=== PATIENT | female | born 1960 | race Two or more races ===

== ENCOUNTER 2017-12-07 07:30 | Day surgery (SDC) | payer OTHER ==
[~2017-12-07] VITALS: Ht 160 cm; Wt 85.3 kg
[2017-12-07] VITALS (9 sets, daily range): BP systolic 105–120; BP diastolic 65–72
--- NOTE | 2017-12-07 07:05 | Anethesia Preoperative Eval ---
Anesthesia Pre-op PMH/ROS General Date of Evaluation: Dec 07, 2017 Time of Evaluation: 07:05 Anesthesiologist: pepe ASA Score: ASA 3 Mallampati Score Class I : Soft palate, uvula, fauces, pillars visible Class II: Soft palate, uvula, fauces visible Class III: Soft palate, base of uvula visible Class IV: Only hard plate visible Mallampati Classification: Class II Surgeon: juan jose Diagnosis: colon screening Surgical Procedure: colonoscopy Anesthesia History: none Social History: smoking - nonsmoker Family History: no anesthesia problems Allergies: Coded Allergies: NO KNOWN ALLERGIES (Unverified Allergy, Unknown, 04/03/14) Medications: see eMAR Past Medical History Pulmonary: Reports: asthma Gastrointestinal/Genitourinary: Reports: GERD Endocrine: Reports: DM Musculoskeletal/Integumentary: Reports: OA Anesthesia Pre-op Phys. Exam Physician Exam Last Vital Signs Date Time Temp Pulse Resp B/P (MAP) Pulse Ox O2 Delivery O2 Flow Rate FiO2 12/07/17 08:31 97.6 74 20 114/69 100 Room Air 97.6 Constitutional: NAD Neurologic: CN 2-12 intact Cardiovascular: RRR Respiratory: CTA Gastrointestinal: S/NT/ND Airway Exam Mallampati Score: Class II MO: full Neck: short TMD: 2fb ROM: full Anesthesia Pre-op A/P Labs Labs Test 12/07/17 09:31 Urine HCG, Qualitative Negative Risk Assessment & Plan Assessment: asa3 Plan: mac Status Change Before Surgery: No Pre-Antibiotics Drug: EDWIN Higginbotham Dec 07, 2017 07:05
[~2017-12-07 07:30] MED LIST: Atropine Inj 1mg/10ml Syr IV PRN; DiphenhydrAMINE 50mg/ml Inj IVP PRN; LR 1000ml 1,000 ML IVLG SCH; Midazolam 2mg/2ml Inj IVP PRN; NKM; fentaNYL 100 mcg/2 mL IV PRN
--- NOTE | 2017-12-07 07:41 | Short Stay Surgery H&P ---
History of Present Illness History of Present Illness Chief Complaint Patient is here for screening colonoscopy HPI Dariana Patel is a 57 year old female who was admitted on for Colon Screening Patient History Allergies: Coded Allergies: NO KNOWN ALLERGIES (Unverified Allergy, Unknown, 04/03/14) PAST MEDICAL HISTORY: (1) Diabetes Past Surgeries: Relevant Family History: FH: cholecystectomy Social History: Medication History Scheduled No Known Medications* (NKM - No Known Medications*), 0 ., (Reported) Review of Systems Cardiovascular: Reports: no symptoms Respiratory: Reports: no symptoms Skeletal: Reports: no symptoms Gastrointestinal: Reports: no symptoms Genitourinary: Reports: no symptoms Neurologic: Reports: no symptoms Endocrine: Reports: diabetes - type 2 Hematologic: Reports: no symptoms Physical Exam Skin: normal HENT: normal Heart: normal Lungs: normal Abdomen: normal Extremities: normal Genitourinary: normal Plan Plan of Care Total colonoscopy Preop Interventions None. Summary of Findings See the reports Final Diagnosis: Attestation Are the patient's medical conditions optimized for surgery? Attestation Response: yes HELENE BETHEA Dec 07, 2017 07:41
--- NOTE | 2017-12-07 07:42 | Pre-Procedure Note/Attestation ---
Pre-Procedure Note/Attestation Complete Prior to Procedure Planned Procedure: left Procedure Narrative: Examination of the total colon via endoscope to R/O Colon CA. Indications for Procedure Pre-Operative Diagnosis: R/O Colon polyps/ CA Attestation I attest that I discussed the nature of the procedure; its benefits; risks and complications; and alternatives (and the risks and benefits of such alternatives ), prior to the procedure, with the patient (or the patient's legal phone representative). I attest that, if there was a reasonable possibility of needing a blood transfusion, the patient (or the patient's legal phone representative) was given the [place] [employer] standardized written summary, pursuant to the Jonathan Olna Blood Safety Act ([place] Health and Safety Code # 1645, as amended). I attest that I re-evaluated the patient just prior to the surgery and that there has been no change in the patient's H&P, except as documented below: LAKESAID Dec 07, 2017 07:42
[2017-12-07] MEDS ORDERED: METFORMIN HCL500 M1 ORAL (08:26)
[2017-12-07] MEDS ORDERED: LOESTRIN FE 1.1 EACH PO (08:26)
[2017-12-07] MEDS ORDERED: fentaNYL 100 mcg/2 mL IV ONE (09:00)
[2017-12-07] MEDS ORDERED: Lidocaine 1% MPF 10mg/ml 5ml ONE (09:00)
[2017-12-07] MEDS ORDERED: Propofol 200mg/20ml IV ONE (09:00)
[2017-12-07] MEDS ORDERED: Midazolam 2mg/2ml Inj ONE (09:00)
[2017-12-07] MEDS ORDERED: LR 1000ml ONE (09:00)
--- NOTE | 2017-12-07 10:04 | Endoscopy Procedure Note ---
Endoscopy Procedure Note General Indication for Procedure: screning colonoscopy Procedures Performed: colonoscopy - Internal hemorrhoids, otherwise normal total colonoscopyupto the base of the secum as examined. Specimen: none Pt Tolerated Procedure Well: Yes Estimated Blood Loss: none Anesthesia Anesthesiologist: Dr. Headley Anesthesia: moderate sedation Medications Medication Given: see anesthesia record Inserted Devices Implant(s) used?: No Quality Quality of Bowel Preparation: Excellent Did scope reach the cecum?: Yes Was there any complications?: No GI Core Measures 50 yrs or older w/o bx or poly: Yes 10yrs. F/U not recommended: Yes If not recommended, why?: 18 years or older w/prev. colo: No <3yrs. since last colonoscopy: No Med reason:<3 yrs.: System Reason:<3 yrs.: HELENE BETHEA Dec 07, 2017 10:04
--- NOTE | 2017-12-07 10:04 | Discharge Instructions ---
Discharge Instructions Discharge Instructions Follow up with: Doctor will talk with For Congestive Heart Failure Reminder Report to your physician any weight gain of 5 pounds or more in one week. HELENE BETHEA Dec 07, 2017 10:04
--- NOTE | 2017-12-07 10:26 | Immediate Post-Op Evaluation ---
Immediate Post-Op Evalulation Immediate Post-Op Evalulation Procedure: colonoscopy Date of Evaluation: Dec 07, 2017 Time of Evaluation: 10:26 IV Fluids: 500ml lr Blood Products: none Estimated Blood Loss: negligible Blood Pressure Systolic: 106 Blood Pressure Diastolic: 69 Pulse Rate: 77 Respiratory Rate: 18 O2 Sat by Pulse Oximetry: 100 Temperature (Fahrenheit): 98.5 Pain Score (1-10): 0 Nausea: No Vomiting: No Complications none Patient Status: awake, reacts, patent Hydration Status: adequate Drug: EDWIN Higginbotham Dec 07, 2017 10:26
--- NOTE | 2017-12-07 10:27 | 48 Hour Post Anesthesia Eval ---
Post Anesthesia Evaluation Procedure: colonoscopy Date of Evaluation: Dec 07, 2017 Time of Evaluation: 10:28 Blood Pressure Systolic: 105 0: 65 Pulse Rate: 70 Respiratory Rate: 18 Temperature (Fahrenheit): 98.5 O2 Sat by Pulse Oximetry: 100 Airway: patent Nausea: No Vomiting: No Pain Intensity: 0 Hydration Status: adequate Cardiopulmonary Status: stable Mental Status/LOC: patient returned to baseline Post-Anesthesia Complications: none Follow-up care needed: N/A EDWIN ALY Dec 07, 2017 10:27
--- NOTE | 2017-12-07 18:15 | Procedure Note ---
DATE OF PROCEDURE: 12/07/2017 PROCEDURE: Total colonoscopy. SURGEON: Talita Tiwari M.D. PREOPERATIVE DIAGNOSIS: Screening colonoscopy. POSTOPERATIVE DIAGNOSIS: Minimal internal hemorrhoids, otherwise complete normal total colonoscopy up to the base of the cecum as examined. MEDICATION USED: Per Dr. Headley, anesthesiologist. INSTRUMENT: GIF Olympus videocolonoscope. DESCRIPTION OF PROCEDURE: The patient after arriving at the endoscopy unit, was told about risks and benefits of the procedure, that she accepted and signed informed consent. At this time, she was put on the left lateral decubitus position. After adequate IV sedation, the scope was gently passed through the anal area, which revealed evidence of hemorrhoidal tags and some internal hemorrhoids of grade 1 inside and this was confirmed by retroflexion of the scope. The rest of the rectum looked normal. At this time, the scope was passed through highly redundant left colon, which took a significant amount of time to pass through reaching towards the splenic flexure, transverse colon, hepatic flexure, and finally was guided into the right colon all the way to the base of the cecum. All these areas remained to be completely normal. The colon cleanup was adequate and excellent. At this time, upon reaching to the base of the cecum within 7 minutes, the scope was gradually pulled out and re-evaluation of the colon did not reveal any pathology. The patient tolerated the procedure well and left the endoscopy room in a good condition. Talita Tiwari M.D. DR: ESTHER JOB#: [id number] CC:
== END 2017-12-07 11:30 | disposition home or self-care (01) ==
LOC: GAS 07:30
DX: Z12.11 Encounter for screening for malignant neoplasm of colon (principal); K64.8 Other hemorrhoids; K21.9 Gastro-esophageal reflux disease without esophagitis; E11.9 Type 2 diabetes mellitus without complications; M19.90 Unspecified osteoarthritis, unspecified site
CPT/HCPCS: 45378; 81025; 82962; J2250; J2704; J3010; J7120; 94003; 94150